=== PATIENT | male | born 1955 | race Caucasian/White ===

== ENCOUNTER 2022-11-24 11:35 | Emergency (ER) | payer BC, MEDICARE ==
[~2022-11-24] VITALS: Ht 185.4 cm; Wt 95.5 kg
[2022-11-24 12:39] VITALS: BP 147/89; PULSE 63; RESP 18; TEMP 98.1; O2SAT 97
== END 2022-11-24 18:19 | disposition left against medical advice (07) ==
LOC: ER 11:35
DX: K08.89 Other specified disorders of teeth and supporting structures (principal); Z53.21 Procedure and treatment not carried out due to patient leaving prior to being seen by health care provider
CPT/HCPCS: 99281